=== PATIENT | female | born 1960 | race Hispanic/Latino ===

== ENCOUNTER 2021-07-30 15:14 | Emergency (ER) | payer BC, OTHER ==
[~2021-07-30] VITALS: Ht 152.4 cm; Wt 81.6 kg
[2021-07-30] MEDS ORDERED: HYDROCODONE/APAP 5MG-325MG TAB PO ONE (15:45)
[2021-07-30] MEDS ORDERED: ONDANSETRON HCL 4 MG ORAL DISINTEGRATING TAB PO ONE (15:45)
[2021-07-30] MEDS ORDERED: ONDANSETRON HCL 4 MG ORAL DISINTEGRATING TAB ONE (16:06)
[2021-07-30] MEDS ORDERED: HYDROCODONE/APAP 5MG-325MG TAB ONE (16:07)
[2021-07-30] MEDS ORDERED: FIORICET 50-301 EACH PO (16:43)
[2021-07-30] MEDS ORDERED: CYCLOBENZAPRINE5 MG PO (16:43)
== END 2021-07-30 16:50 | disposition home or self-care (01) ==
LOC: FSED 15:31
DX: G43.909 Migraine, unspecified, not intractable, without status migrainosus (principal); I10 Essential (primary) hypertension; E11.9 Type 2 diabetes mellitus without complications; E78.5 Hyperlipidemia, unspecified
CPT/HCPCS: 70450; 72125; 99283; Q0162